=== PATIENT | female | born 1980 | race Caucasian/White ===

== ENCOUNTER 2016-12-26 12:36 | Emergency (ER) | payer SELFPAY ==
[~2016-12-26] VITALS: Ht 154.9 cm; Wt 95.0 kg
[2016-12-26 12:48] VITALS: BP 180/122; PULSE 95; RESP 22; TEMP 97.2; O2SAT 100
[2016-12-26 13:00] VITALS: BP 139/69; PULSE 89; RESP 16; O2SAT 99
--- NOTE | 2016-12-26 13:34 | PD ---
HPI Chief Complaint: Medication Refill Request Time Seen by Provider: 13:28 Travel History International Travel<30 days: No Contact w/Intl Traveler<30days: No Traveled to known affect area: No History of Present Illness HPI 36-year-old female recently moved here presents the emergency room for refill of her Zoloft. Patient states she's been taking Zoloft since 2003. She did out of her medication for the last 2 days. Patient is in the process of establishing with a local provider. Patient normally takes 100 mg daily. She has no other known drug allergies. PFSH Past Medical History Diabetes: Yes ?: Not LMP: 12/19/16 Social History Alcohol Use: No Tobacco Use: No Substance Use: No Allergies-Medications (Allergen,Severity, Reaction): Uncoded Allergies: PCN (Allergy, Unknown, 12/26/16) Review of Systems Except as stated in HPI: all other systems reviewed are Neg General / Constitutional: No: Fever Eyes: No: Visual changes HENT: No: Headaches Cardiovascular: No: Chest Pain or Discomfort Respiratory: No: Shortness of Breath Gastrointestinal: No: Abdominal Pain Genitourinary: No: Dysuria Musculoskeletal: No: Pain Skin: No Rash Neurologic: No: Weakness Psychiatric: Positive: Anxiety, Depression, No: Suicidal Ideations, Homicidal Ideation Endocrine: No: Polydipsia Hematologic/Lymphatic: No: Easy Bruising Physical Exam Narrative GENERAL: Patient appears mildly anxious otherwise no acute distress. SKIN: Warm and dry. HEAD: Atraumatic. Normocephalic. EYES: Pupils equal and round. No scleral icterus. No injection or drainage. ENT: No nasal bleeding or discharge. Mucous membranes pink and moist. Pharynx is clear. NECK: Trachea midline. Supple. CARDIOVASCULAR: Regular rate and rhythm. RESPIRATORY: No accessory muscle use. Clear to auscultation. Breath sounds equal bilaterally. MUSCULOSKELETAL: Extremities without clubbing, cyanosis, or edema. No obvious deformities. NEUROLOGICAL: Awake and alert. No obvious cranial nerve deficits. Motor grossly within normal limits. Five out of 5 muscle strength in the arms and legs. Normal speech. PSYCHIATRIC: Appropriate mood and affect; insight and judgment normal. Data Data Last Documented VS Vital Signs Date Time Temp Pulse Resp B/P (MAP) Pulse Ox O2 Delivery O2 Flow Rate FiO2 12/26/16 13:00 89 16 139/69 (92) 99 12/26/16 12:48 97.2 [facility] Medical Decision Making Medical Screen Exam Complete: Yes Emergency Medical Condition: Yes Differential Diagnosis Anxiety. Depression. Medication refill. Narrative Course Patient is given a refill of her Zoloft 100 mg daily #30. Patient is to follow-up with her local primary care physician as discussed. Diagnosis Primary Impression: Encounter for medication refill Additional Impression: Anxiety Referrals: Primary Care Physician Patient Instructions: Anxiety (ED), General Instructions Additional Instructions: Patient is given a refill of her Zoloft 100 mg daily #30. Patient is to follow-up with her local primary care physician as discussed. Med/Other Pt SpecificInfo: Prescription(s) given Disposition: DISCHARGE HOME Condition: Stable Tree Encinas Dec 26, 2016 13:34
[2016-12-26] MEDS ORDERED: ZOLO100T PO (13:35)
== END 2016-12-26 13:53 | disposition home or self-care (01) ==
LOC: NEPK 12:36
DX: F41.9 Anxiety disorder, unspecified (principal); Z76.0 Encounter for issue of repeat prescription
CPT/HCPCS: 99281

== ENCOUNTER 2017-03-03 20:10 | Emergency (ER) | payer SELFPAY ==
[~2017-03-03 20:10] MED LIST: ZOLO100T PO
[2017-03-03 20:11] VITALS: BP 189/99; PULSE 89; RESP 16; TEMP 98.1; O2SAT 98
--- NOTE | 2017-03-03 20:33 | PD ---
HPI Chief Complaint: Cold / Flu Symptoms Time Seen by Provider: 20:21 Travel History International Travel<30 days: No Contact w/Intl Traveler<30days: No Traveled to known affect area: No History of Present Illness HPI Patient comes in complaining of cold like symptoms ongoing for 3 or 4 days. Patient states symptoms got worse today when she developed a fever. Patient states she been taking [id number] cold and flu medication for symptomatic relief however doesn't feel she is getting any better. Patient complaining of cough, congestion, sore throat, headaches, nausea, and vomiting that is nonbloody and nonbilious. Patient denies any diarrhea, back pain, chest pain, shortness of breath, numbness or tingling anywhere, loss or change in bowel or bladder, or neck pain. Patient denies anything making this worse. Patient reports she is diabetic some blood sugars normally run around 160. Patient also requesting a refill of her Zoloft reports she takes 200 mg by mouth daily at bedtime. PFSH Past Medical History Diabetes: Yes Patient Takes Glucophage: Yes Immunizations Current: Yes Influenza Vaccination: No ?: Unknown Social History Alcohol Use: No Tobacco Use: No Substance Use: No Allergies-Medications (Allergen,Severity, Reaction): Uncoded Allergies: PCN (Allergy, Unknown, 12/26/16) Reported Meds & Prescriptions Reported Meds & Active Scripts Active Zofran Odt (Ondansetron Odt) 4 Mg Tab 4 Mg SL Q6HR PRN Zoloft (Sertraline HCl) 100 Mg Tab 200 Mg PO DAILY 30 Days Review of Systems Except as stated in HPI: all other systems reviewed are Neg Physical Exam Narrative GENERAL: Well-developed, overly nourished, in no acute distress, and non-ill appearing. SKIN: Focused skin assessment warm and dry. HEAD: Atraumatic. Normocephalic. EYES: Pupils equal and round. EOMI. No scleral icterus. No injection or drainage. ENT: No nasal bleeding or discharge. Mucous membranes pink and moist. Tympanic membranes pearly alford bilaterally. Posterior pharynx nonerythematous without exudate. Uvula is midline. Patient reports mild tenderness bilateral maxillary sinuses. NECK: Trachea midline. No cervical lymphadenopathy. Supple. No nuclear rigidity. CARDIOVASCULAR: Regular rate and rhythm. No murmur appreciated. RESPIRATORY: No accessory muscle use. No respiratory distress. Clear to auscultation. Breath sounds equal bilaterally. GASTROINTESTINAL: Abdomen soft, non-tender, nondistended, and no guarding. Hepatic and splenic margins not palpable. No pulsatile mass. MUSCULOSKELETAL: No obvious deformities. No clubbing. No cyanosis. No edema. Full range of motion. NEUROLOGICAL: Awake and alert. No obvious cranial nerve deficits. Motor grossly within normal limits. Normal speech. PSYCHIATRIC: Appropriate mood and affect; insight and judgment normal. Data Data Last Documented VS Vital Signs Date Time Temp Pulse Resp B/P (MAP) Pulse Ox O2 Delivery O2 Flow Rate FiO2 03/03/17 21:51 03/03/17 20:11 98.1 89 16 98 Orders Orders Influenzae A/B Antigen (03/03/17 20:27) Group A Rapid Strep Screen (03/03/17 20:33) Strep Culture (Group A) (03/03/17 20:40) Ed Discharge Order (03/03/17 21:33) MDM Medical Decision Making Medical Screen Exam Complete: Yes Emergency Medical Condition: Yes Differential Diagnosis Influenza, strep pharyngitis, upper respiratory infection, sinusitis, viral syndrome, other Narrative Course Patient looks great, non-ill appearing. The patient is tolerating fluids and is well hydrated. Appears viral symptom complex. No clinical evidence by history or evaluation to suspect meningitis and/or sepsis. I discussed with the patient , diagnosis, plan of care and to follow up with the patients primary physician. The patient was instructed to return if the worsens in anyway, especially if not tolerating fluids, increased pain or swelling, difficulty swallowing or breathing, or as needed. The patient agreed with plan. Patient in no obvious distress upon re-evaluation. All pertinent Radiology result(s) discussed with patient. Patient was asked if they wanted to speak to my attending, which the patient did not wish to do at this time. Any questions/ concerns in reference to patient diagnosis/condition discussed and clarified prior to patient's discharge. Reinforced sheer importance of close follow up with patient's primary physician or primary care clinic. Instructed patient to return to ED immediately, if symptoms return/worsen. Patient showed understanding of above instructions. Further instructions and recommendations were detailed in discharge paperwork. Patient ambulated without difficulty out of ED at discharge. Diagnosis Primary Impression: Viral syndrome Additional Impressions: Elevated blood pressure reading Medication refill Referrals: [facility] Patient Instructions: General Instructions, Hypertension (ED), Medication Refill, ED, Viral Syndrome (ED) Additional Instructions: Follow-up with your primary care physician as scheduled. Take all medication as prescribed. Drink plenty of non-caffeinated and nonalcoholic fluids. Use [id number] Tylenol and/or ibuprofen as needed for fever and/or body aches. Follow instructions on the packaging. Return to the emergency department if symptoms get worse. Med/Other Pt SpecificInfo: Prescription(s) given Scripts Ondansetron Odt (Zofran Odt) 4 Mg Tab 4 MG SL Q6HR Y for Nausea/Vomiting, #12 TAB 0 Refills Prov: Wesley Naranjo MD 03/03/17 Sertraline (Zoloft) 100 Mg Tab 200 MG PO DAILY for 30 Days, #60 TAB 0 Refills Prov: Wesley Naranjo MD 03/03/17 Disposition: 01 DISCHARGE HOME Condition: Stable Cristopher Mcadams Mar 03, 2017 20:33
[2017-03-03] MEDS ORDERED: ZOFR4TAB3 SL (21:33)
[2017-03-03] MEDS ORDERED: ZOLO100T PO (21:33)
== END 2017-03-03 21:52 | disposition home or self-care (01) ==
LOC: NEPK 20:10
DX: B34.9 Viral infection, unspecified (principal); R03.0 Elevated blood-pressure reading, without diagnosis of hypertension; E11.9 Type 2 diabetes mellitus without complications; Z79.84 Long term (current) use of oral hypoglycemic drugs; Z76.0 Encounter for issue of repeat prescription
CPT/HCPCS: 87081; 87804; 87880; 99283

== ENCOUNTER 2017-05-04 14:37 | Emergency (ER) | payer SELFPAY ==
[~2017-05-04 14:37] MED LIST changes: +ZOFR4TAB3 SL
[2017-05-04 14:54] VITALS: BP 158/72; PULSE 92; RESP 16; TEMP 98.8; O2SAT 98
[2017-05-04 18:02] LABS: AUTOMATED NEUTROPHIL # 7.2 TH/MM3 (1.8-7.7); BASOPHIL # 0.1 TH/MM3 (0-0.2); BASOPHIL % 0.9 % (0.0-2.0); EOSINOPHIL # 0.1 TH/MM3 (0-0.4); HEMATOCRIT 34.1 % (35.0-46.0); LYMPH % 31.6 % (9.0-44.0); LYMPHOCYTE # 3.6 TH/MM3 (1.0-4.8); MEAN CORPUSCULAR HEMOGLOBIN 21.7 PG (27.0-34.0); MEAN CORPUSCULAR HGB CONC 32.3 % (32.0-36.0); MEAN PLATELET VOLUME 8.1 FL (7.0-11.0); MONO % 4.2 % (0.0-8.0); MONOCYTE # 0.5 TH/MM3 (0-0.9); NEUT % 62.3 % (16.0-70.0); PLATELET COUNT 438 TH/MM3 (150-450); RED BLOOD COUNT 5.09 MIL/MM3 (4.00-5.30); RED CELL DISTRIBUTION WIDTH 17.4 % (11.6-17.2); WHITE BLOOD COUNT 11.5 TH/MM3 (4.0-11.0)
[2017-05-04 18:10] LABS: AMORPHOUS SEDIMENT, URINE RARE; BILIRUBIN, URINE NEG (NEG); BLOOD, URINE MOD (NEG); GLUCOSE,URINE 1000 mg/dL (NEG); KETONE, URINE NEG (NEG); MUCUS URINE FEW /lpf (OCC); NITRITE,URINE NEG (NEG); SQUAMOUS EPITHELIAL CELL URINE 3 /hpf (0-5); URINE COLOR YELLOW (YELLW/STRAW); URINE LEUKOCYTE ESTERASE NEG (NEG)
[2017-05-04 18:26] LABS: ALBUMIN 3.3 GM/DL (3.4-5.0); ALT (GPT) 31 U/L (10-53); AST (GOT) 20 U/L (15-37); BICARBONATE 29.4 MEQ/L (21.0-32.0); BLOOD UREA NITROGEN 14 MG/DL (7-18); CALCIUM 8.9 MG/DL (8.5-10.1); CHLORIDE 99 MEQ/L (98-107); CREATININE 0.74 MG/DL (0.50-1.00); GLOMERULAR FILTRATION RATE 88 ML/MIN (>89); GLUCOSE,RANDOM 252 MG/DL (74-106); LIPASE 161 U/L (73-393); SODIUM (NA) 135 MEQ/L (136-145)
[2017-05-04 18:28] LABS: ALKALINE PHOSPHATASE 71 U/L (45-117); TOTAL BILIRUBIN ADULT 0.2 MG/DL (0.2-1.0); TOTAL PROTEIN 7.7 GM/DL (6.4-8.2)
[2017-05-04] MEDS ORDERED: ONDANSETRON HCL 4 MG/2 ML VIAL IV PUSH ONE (20:15)
--- NOTE | 2017-05-04 20:19 | PD ---
HPI Chief Complaint: Abdominal Pain Time Seen by Provider: 20:06 Travel History International Travel<30 days: No Contact w/Intl Traveler<30days: No Traveled to known affect area: No History of Present Illness HPI 37-year-old female here for evaluation of right lower quadrant abdominal pain. Patient reports that the pain has been there for last 3 days, sharp, constant, worse with movement and palpation, moderate, associated with nausea. Patient reports history of right oophorectomy. She still has her appendix. She has been having intermittent vaginal spotting. She is sexually active with one partner and believe she is in a monogamous relationship. No urinary symptoms. No fevers. LMP was one month ago. PFSH Past Medical History Diabetes: Yes Immunizations Current: Yes ?: Unknown Social History Alcohol Use: No Tobacco Use: No Substance Use: No Allergies-Medications (Allergen,Severity, Reaction): Uncoded Allergies: PCN (Allergy, Unknown, 12/26/16) Reported Meds & Prescriptions Reported Meds & Active Scripts Active Review of Systems Except as stated in HPI: all other systems reviewed are Neg Physical Exam Narrative GENERAL: Well-developed, well-nourished, overweight, comfortable, no apparent distress. SKIN: Focused skin assessment warm/dry. No rash. HEAD: Atraumatic. Normocephalic. EYES: Pupils equal and round. No scleral icterus. No injection or drainage. ENT: Mucous membranes pink and moist. NECK: Trachea midline. No JVD. CARDIOVASCULAR: Regular rate and rhythm. RESPIRATORY: No accessory muscle use. Clear to auscultation. Breath sounds equal bilaterally. GASTROINTESTINAL: Abdomen soft, nondistended. Moderate right lower quadrant tenderness without peritoneal signs. Rest of abdomen is soft and nontender. No hernias. Normal bowel sounds. CONFERENCE SERVICES COORDINATOR: Exam performed in the presence of female nurse. Normal external genitalia. Scant blood in vaginal vault coming from cervical os. No foul- smelling vaginal discharge. No CMT. No adnexal masses or tenderness. MUSCULOSKELETAL: No obvious deformities. No clubbing. No cyanosis. No edema. NEUROLOGICAL: Awake and alert. No obvious cranial nerve deficits. Motor grossly within normal limits. Normal speech. PSYCHIATRIC: Appropriate mood and affect; insight and judgment normal. Data Data Last Documented VS Vital Signs Date Time Temp Pulse Resp B/P (MAP) Pulse Ox O2 Delivery O2 Flow Rate FiO2 05/04/17 14:54 98.8 92 16 158/72 (100) 98 Orders Orders Complete Blood Count With Diff (05/04/17 15:15) Comprehensive Metabolic Panel (05/04/17 15:15) Lipase (05/04/17 15:15) Urinalysis - C+S If Indicated (05/04/17 15:15) Ed Urine Pregnancytest Poc (05/04/17 15:15) Ed Urine Pregnancytest Poc (05/04/17 20:12) Ct Abd/Pel W Iv Contrast(Rout) (05/04/17 ) Ondansetron Inj (Zofran Inj) (05/04/17 20:15) Gc And Chlamydia Pcr (05/04/17 20:12) Wet Prep Profile (05/04/17 20:12) Ketorolac Inj (Toradol Inj) (05/04/17 21:15) Iohexol 350 Inj (Omnipaque 350 Inj) (05/04/17 22:35) Labs Laboratory Tests Test 05/04/17 16:57 05/04/17 21:07 White Blood Count 11.5 TH/MM3 Red Blood Count 5.09 MIL/MM3 Hemoglobin 11.0 GM/DL Hematocrit 34.1 % Mean Corpuscular Volume 67.0 FL Mean Corpuscular Hemoglobin 21.7 PG Mean Corpuscular Hemoglobin Concent 32.3 % Red Cell Distribution Width 17.4 % Platelet Count 438 TH/MM3 Mean Platelet Volume 8.1 FL Neutrophils (%) (Auto) 62.3 % Lymphocytes (%) (Auto) 31.6 % Monocytes (%) (Auto) 4.2 % Eosinophils (%) (Auto) 1.0 % Basophils (%) (Auto) 0.9 % Neutrophils # (Auto) 7.2 TH/MM3 Lymphocytes # (Auto) 3.6 TH/MM3 Monocytes # (Auto) 0.5 TH/MM3 Eosinophils # (Auto) 0.1 TH/MM3 Basophils # (Auto) 0.1 TH/MM3 CBC Comment DIFF FINAL Differential Comment Urine Color YELLOW Urine Turbidity CLEAR Urine pH 6.0 Urine Specific [place] 1.037 Urine Protein 100 mg/dL Urine Glucose (UA) 1000 mg/dL Urine Ketones NEG mg/dL Urine Occult Blood MOD Urine Nitrite NEG Urine Bilirubin NEG Urine Urobilinogen LESS THAN 2.0 MG/DL Urine Leukocyte Esterase NEG Urine RBC 3 /hpf Urine WBC 1 /hpf Urine Squamous Epithelial Cells 3 /hpf Urine Amorphous Sediment RARE Urine Mucus FEW /lpf Microscopic Urinalysis Comment CULT NOT INDICATED Blood Urea Nitrogen 14 MG/DL Creatinine 0.74 MG/DL Random Glucose 252 MG/DL Total Protein 7.7 GM/DL Albumin 3.3 GM/DL Calcium Level 8.9 MG/DL Alkaline Phosphatase 71 U/L Aspartate Amino Transf (AST/SGOT) 20 U/L Alanine Aminotransferase (ALT/SGPT) 31 U/L Total Bilirubin 0.2 MG/DL Sodium Level 135 MEQ/L Potassium Level 4.1 MEQ/L Chloride Level 99 MEQ/L Carbon Dioxide Level 29.4 MEQ/L Anion Gap 7 MEQ/L Estimat Glomerular Filtration Rate 88 ML/MIN Lipase 161 U/L Clue Cells (Wet Prep) NONE SEEN Vaginal Trichomonas (Wet Prep) NONE SEEN Vaginal Yeast (Wet Prep) NONE SEEN MDM Medical Decision Making Medical Screen Exam Complete: Yes Emergency Medical Condition: Yes Differential Diagnosis Appendicitis, adhesions, endometriosis, UTI, cystitis, nephrolithiasis, PID, TOA , , ectopic Narrative Course Vital signs reviewed. CBC: WBC 11.5, hemoglobin 11, hematocrit 34, platelets 438. CMP is remarkable for random glucose 252. Bicarbonate is 29.4. Patient is not in DKA. She is on glyburide. UA: 100 protein, 1000 glucose, moderate occult blood. The patient is currently on her menstrual period. Wet prep is negative for yeast, negative for clue cells, negative for Trichomonas. CT abdomen pelvis: CONCLUSION: Granulomas in the spleen. Small bilateral ovarian cysts. Mildly fatty liver. Patient was made aware of all findings. She is resting comfortably and feels remarkably improved with Toradol. There are no peritoneal signs on her abdominal exam. At this point she is stable for discharge home with outpatient follow-up with a primary care physician this week. She was provided a copy of her CT abdomen pelvis report. She was informed on when to return to the emergency department. She verbalizes understanding and agreement with plan. Diagnosis Primary Impression: Abdominal pain Qualified Codes: R10.30 - Lower abdominal pain, unspecified Additional Impression: Ovarian cyst Qualified Codes: N83.209 - Unspecified ovarian cyst, unspecified side Referrals: [facility] 3 days Primary Care Physician 3 days Additional Instructions: Follow-up with a primary care physician this week. Return to the emergency department for worsening symptoms or any other concerns. Scripts Naproxen (Naproxen) 500 Mg Tab 500 MG PO BID for 10 Days, #20 TAB 0 Refills Prov: Yimi Groves MD 05/04/17 Disposition: 01 DISCHARGE HOME Condition: Stable Yimi Groves MD May 04, 2017 20:19
[2017-05-04] MEDS ORDERED: KETOROLAC TROMETHAMINE 30 MG/ML (IVP) VIAL IV PUSH ONE (21:15)
[2017-05-04] MEDS ORDERED: IOHEXOL 350 MG/ML 10 ML VIAL (for RAD DIAG) IVCONTRAST ONE (22:35)
--- NOTE | 2017-05-04 22:46 | RADRPT ---
EXAM DATE/TIME: 05/04/2017 22:19 [facility] COMPARISON: No previous studies available for comparison. INDICATIONS : Right lower quadrant pain X 4 days. IV CONTRAST: 97 cc Omnipaque 350 (iohexol) IV ORAL CONTRAST: No oral contrast ingested. RADIATION DOSE: 13.53 CTDIvol (mGy) MEDICAL HISTORY : Diabetes mellitus type 2. SURGICAL HISTORY : Rt oopherectomy ENCOUNTER: Initial ACUITY: 4 - 6 days PAIN SCALE: 6/10 LOCATION: Right lower quadrant abdomen TECHNIQUE: Volumetric scanning of the abdomen and pelvis was performed. Using automated exposure control and ad justment of the mA and/or kV according to patient size, radiation dose was kept as low as reasonably achievable to obtain optimal diagnostic quality images. DICOM format image data is available electro nically for review and comparison. FINDINGS: LOWER LUNGS: The visualized lower lungs are clear. LIVER: Homogeneous density without lesion. There is no dilation of the biliary tree. No calcified gallston es. SPLEEN: Normal size without lesion. PANCREAS: Within normal limits. KIDNEYS: Normal in size and shape. There is no mass, stone or hydronephrosis. ADRENAL GLANDS: Within normal limits. VASCULAR: There is no aortic aneurysm. BOWEL/MESENTERY: The stomach, small bowel, and colon demonstrate no acute abnormality. There is no free intraperitone al air or fluid. ABDOMINAL WALL: Within normal limits. RETROPERITONEUM: There is no lymphadenopathy. BLADDER: No wall thickening or mass. REPRODUCTIVE: Prominent left ovarian cyst. Small right ovarian cyst.. INGUINAL: There is no lymphadenopathy or hernia. MUSCULOSKELETAL: Within normal limits for patient age. CONCLUSION: Granulomas in the spleen. Small bilateral ovarian cysts. Mildly fatty liver. Lorne Bryant MD on May 04, 2017 at 22:42 Board Certified Radiologist. This report was verified electronically.
[2017-05-04 23:15] VITALS: BP 166/90; PULSE 98; RESP 18; O2SAT 98
[2017-05-04] MEDS ORDERED: NAPR500T2 PO (23:16)
== END 2017-05-04 23:34 | disposition home or self-care (01) ==
LOC: NEPD 14:37
DX: R10.31 Right lower quadrant pain (principal); N83.202 Unspecified ovarian cyst, left side; N83.201 Unspecified ovarian cyst, right side; K76.0 Fatty (change of) liver, not elsewhere classified; E11.9 Type 2 diabetes mellitus without complications; Z88.0 Allergy status to penicillin
CPT/HCPCS: 74177; 80053; 81001; 83690; 84703; 85025; 87210; 87491; 87591; 96374; 96375; 99285; J1885; J2405; Q9967